=== PATIENT | male | born 1945 | race African-American/Black ===

== ENCOUNTER 2019-06-19 12:19 | Inpatient (IN) | payer MEDICARE, OTHER ==
[~2019-06-19] VITALS: Ht 177.8 cm; Wt 78.5 kg
[2019-06-19] MEDS ORDERED: SODIUM CHLORIDE 0.9% 1,000 ML IV ONE (13:13)
[2019-06-19 13:29] LABS: BG BASE EXCESS -2.1 mmol/L (-2.0-2.0); BG CARBOXYHEMOGLOBIN 3.5 % (0.5-1.5); BG DEOXYHEMOGLOBIN 8.7 % (0.0-5.0); BG FRACTION INSPIRED OXYGEN 21; BG HCO3 ACT 22.9 mmol/L (22.0-26.0); BG METHEMOGLOBIN 0.1 % (0.0-1.5); BG OXYHEMOGLOBIN 87.7 % (94.0-97.0); BG PCO2 40.2 mmHg (35.0-45.0); BG PH 7.374 (7.350-7.450); BG PO2 61.4 mmHg (75.0-100.0); BG SAMPLE SITE RIGHT RADIAL; BG TOTAL HEMOGLOBIN 12.9 g/dL (12.0-18.0); BG VENT MODE ROOM AIR
[2019-06-19 13:40] LABS: BASOPHILS % 0.4 % (0.0-2.0); EOSINOPHILS % 3.8 % (0.0-5.0); HEMATOCRIT. 37.8 % (42.0-52.0); HEMOGLOBIN. 12.2 g/dL (14.0-18.0); LYMPHOCYTES % 27.3 % (20.0-50.0); MEAN CORPUSCULAR HEMOGLOBIN 28.6 pg (28.0-32.0); MEAN CORPUSCULAR VOLUME 88.3 fL (80.0-94.0); MEAN PLATELET VOLUME 8.6 fl (7.4-10.4); MONOCYTES % 6.2 % (2.0-8.0); NEUTROPHILS % 62.3 % (40.0-76.0); PLATELET 212 x1000/uL (130-400); RED BLOOD CELL COUNT 4.28 mill/uL (4.7-6.1); RED CELL DISTRIBUTION WIDTH 14.2 % (11.6-14.6)
[2019-06-19 13:47] LABS: INR 1.1; PROTHROMBIN TIME 11.4 sec (9.6-11.0)
[2019-06-19 13:48] LABS: CHLORIDE 110 mEq/L (98-107)
[2019-06-19 13:51] LABS: ETHANOL BLOOD < 10 mg/dL
[2019-06-19 13:55] LABS: CREATINE KINASE 170 IU/L (39-308)
[2019-06-19 13:58] LABS: CREATINE KINASE MB FRACTION 1.2 ng/mL (0.5-3.6)
[2019-06-19] MEDS ORDERED: ACETAZOLAMIDE SODIUM 500MG/VIAL IV ONE (14:30)
[2019-06-19 16:05] VITALS: BP 111/74
[2019-06-19] MEDS ORDERED: DIPHENHYDRAMINE 50MG/ML VIAL IV PRN (17:00)
[2019-06-19] MEDS ORDERED: GUAIFENESIN 200MG/10ML SUGAR FREE UDC PO PRN (17:00)
[2019-06-19] MEDS ORDERED: DOCUSATE SODIUM 100MG CAPSULE PO PRN (17:00)
[2019-06-19] MEDS ORDERED: ONDANSETRON HCL 4MG/2ML INJ IV PRN (17:00)
[2019-06-19] MEDS ORDERED: ACETAMINOPHEN 325MG TABLET PO PRN (17:00)
[2019-06-19] MEDS ORDERED: IPRATROPIUM/ALBUTEROL 0.5-3(2.5)MG/3ML NEB HHN PRN (17:00)
[2019-06-19] MEDS ORDERED: MAGNESIUM/ALUMINUM HYDROXIDE/SIMETHICONE 30ML UDC PO PRN (17:00)
[2019-06-19] MEDS ORDERED: CLONIDINE 0.1MG TABLET PO PRN (17:00)
[2019-06-19] MEDS ORDERED: HYDROCODONE/ACETAMINOPHEN 5/325MG TABLET PO PRN (17:00)
[2019-06-19 17:04] VITALS: BP 114/74
[2019-06-19 18:00] VITALS: BP 108/72
[2019-06-19] MEDS: SODIUM CHLORIDE 0.9% 1,000 ML IV SCH (18:59)
[2019-06-19] MEDS: ENOXAPARIN 40MG/0.4ML SYR SUBCUT SCH (19:00)
[2019-06-19] MEDS ORDERED: PNEUMOCOCCAL 23-VAL P-SAC VAC 0.5 ML IM ONE (19:45)
[2019-06-19 20:00] VITALS: BP 129/87
[2019-06-19 21:37] LABS: PHOSPHORUS 2.1 mg/dL (2.5-4.9)
[2019-06-19 22:00] VITALS: BP 116/81
[2019-06-20] VITALS (12 sets, daily range): BP systolic 108–147; BP diastolic 68–96
[2019-06-20 06:31] LABS: BASOPHILS % 0.4 % (0.0-2.0); EOSINOPHILS % 3.9 % (0.0-5.0); HEMATOCRIT. 35.6 % (42.0-52.0); HEMOGLOBIN. 11.4 g/dL (14.0-18.0); LYMPHOCYTES % 27.1 % (20.0-50.0); MEAN CORPUSCULAR HEMOGLOBIN 28.5 pg (28.0-32.0); MEAN CORPUSCULAR VOLUME 88.7 fL (80.0-94.0); MONOCYTES % 7.1 % (2.0-8.0); NEUTROPHILS % 61.5 % (40.0-76.0); PLATELET 176 x1000/uL (130-400); RED BLOOD CELL COUNT 4.01 mill/uL (4.7-6.1); RED CELL DISTRIBUTION WIDTH 14.1 % (11.6-14.6)
[2019-06-20] MEDS: SODIUM CHLORIDE 0.9% 1,000 ML IV SCH ×2 (06:42→17:26)
[2019-06-20 09:18] LABS: CHLORIDE 112 mEq/L (98-107)
[2019-06-20 09:26] LABS: LDL CHOLESTEROL 63 mg/dL (5-100)
[2019-06-20 09:34] LABS: HDL CHOLESTEROL 24 mg/dL (40-59)
[2019-06-20] MEDS: ENOXAPARIN 40MG/0.4ML SYR SUBCUT SCH (17:27)
[2019-06-21] VITALS (8 sets, daily range): BP systolic 131–146; BP diastolic 78–93
[2019-06-21] MEDS ORDERED: AMLODIPINE 2.5MG TABLET PO SCH (09:00)
[2019-06-21] MEDS ORDERED: ASPIRIN 81MG EC TABLET PO SCH (09:00)
[2019-06-21] MEDS ORDERED: ASPI-1158 PO (10:37)
== END 2019-06-21 15:40 | disposition home or self-care (01) | DRG 315 ==
LOC: ER 12:19 → 5EST 15:02 → EDBEDREQ 15:06 → ENRESERV 15:20 → CANRESERV 15:20 → ENRESERV 15:29
PROVIDERS: ADMIT Internal Medicine; ATTEND Internal Medicine
DX: I95.9 Hypotension, unspecified (principal); E44.1 Mild protein-calorie malnutrition; D64.9 Anemia, unspecified; E78.5 Hyperlipidemia, unspecified; I10 Essential (primary) hypertension; E87.6 Hypokalemia; E11.9 Type 2 diabetes mellitus without complications; F03.90 Unspecified dementia, unspecified severity, without behavioral disturbance, psychotic disturbance, mood disturbance, and anxiety; F17.200 Nicotine dependence, unspecified, uncomplicated
CPT/HCPCS: 36415; 36600; 71045; 80061; 80320; 82140; 82375; 82550; 82553; 82805; 83605; 83735; 84100; 84145; 84443; 84484; 93005; 93306; 93970; 97162; 97166; 99285; J1120; J1650; J7030; G0480

== ENCOUNTER 2020-06-10 16:13 | Inpatient (IN) | payer MEDICARE, OTHER ==
[~2020-06-10] VITALS: Ht 175.3 cm; Wt 79.4 kg
[~2020-06-10 16:13] MED LIST: ASPI-1158 PO
[2020-06-10] MEDS ORDERED: LIDOCAINE HCL/PF 1% 10 MG/ML 5ML VIAL IJ ONE (17:00)
[2020-06-10] MEDS ORDERED: TETANUS, DIPHTHERIA, PERTUSSIS VAC/PF 0.5ML (>7YR OLD) IM ONE (17:00)
[2020-06-10] MEDS ORDERED: HYDROCODONE/ACETAMINOPHEN 5/325MG TABLET PO ONE (17:00)
[2020-06-10 21:12] LABS: HEMATOCRIT. 42.3 % (42.0-52.0); MEAN CORPUSCULAR HEMOGLOBIN 29.4 pg (28.0-32.0); MEAN CORPUSCULAR VOLUME 88.6 fL (80.0-94.0); MEAN PLATELET VOLUME 8.8 fl (7.4-10.4); PLATELET 220 x1000/uL (130-400); RED BLOOD CELL COUNT 4.77 mill/uL (4.7-6.1); RED CELL DISTRIBUTION WIDTH 13.3 % (11.6-14.6)
[2020-06-10 21:18] LABS: CHLORIDE 102 mEq/L (98-107)
[2020-06-10 21:22] LABS: INR 1.1; PROTHROMBIN TIME 11.3 sec (9.6-11.0)
[2020-06-10 21:28] LABS: PLATELET ESTIMATE NORMAL
[2020-06-10] MEDS ORDERED: ACETAMINOPHEN 325MG TABLET PO PRN (21:30)
[2020-06-10] MEDS ORDERED: ONDANSETRON HCL 4MG/2ML INJ IV PRN (21:30)
[2020-06-10] MEDS ORDERED: GUAIFENESIN 200MG/10ML SUGAR FREE UDC PO PRN (21:30)
[2020-06-10] MEDS ORDERED: MAGNESIUM/ALUMINUM HYDROXIDE/SIMETHICONE 30ML UDC PO PRN (21:30)
[2020-06-10] MEDS ORDERED: DOCUSATE SODIUM 100MG CAPSULE PO PRN (21:30)
[2020-06-10] MEDS ORDERED: CLONIDINE 0.1MG TABLET PO PRN (21:30)
[2020-06-11] VITALS (7 sets, daily range): BP systolic 113–133; BP diastolic 69–88
[2020-06-11] MEDS: HYDROCODONE/ACETAMINOPHEN 5/325MG TABLET PO PRN ×2 (00:17→09:26)
[2020-06-11] MEDS ORDERED: POTASSIUM CHLORIDE 20MEQ TABLET SR PO NR (08:45)
[2020-06-11] MEDS ORDERED: DEXTROSE 50% WATER 50ML SYRINGE IV PRN (08:45)
[2020-06-11] MEDS: AMLODIPINE 10MG TABLET PO SCH (09:26)
[2020-06-11] MEDS: BLOOD SUGAR DIAGNOSTIC STRIP TEST SCH ×3 (11:17→21:14)
[2020-06-11] MEDS: INSULIN LISPRO 100 UNITS/ML SUBCUT SCH ×3 (11:18→21:00)
[2020-06-11] MEDS ORDERED: SERT-112 PO (20:31)
[2020-06-11] MEDS ORDERED: CHOL200077 PO (20:31)
[2020-06-11] MEDS ORDERED: GABA-531 PO (20:31)
[2020-06-11] MEDS ORDERED: DONE10TA43 PO (20:31)
[2020-06-11] MEDS ORDERED: TAMS-11 MT (20:31)
[2020-06-11] MEDS ORDERED: QUET50TA21 PO (20:31)
[2020-06-11] MEDS ORDERED: SIMV-43 PO (20:31)
[2020-06-11] MEDS ORDERED: DONEPEZIL HCL 10MG TABLET PO SCH (21:00)
[2020-06-11] MEDS ORDERED: QUETIAPINE FUMARATE 50MG TABLET PO SCH (21:00)
[2020-06-11] MEDS ORDERED: TAMSULOSIN HCL 0.4MG SR CAPSULE PO SCH (21:00)
[2020-06-11] MEDS ORDERED: MEDICATION NOT ON FORMULARY EA (Simvastatin 20 MG) PO SCH (21:00)
[2020-06-11] MEDS ORDERED: ATORVASTATIN CALCIUM 10MG TABLET PO SCH (21:00)
[2020-06-11] MEDS: GABAPENTIN 300MG CAPSULE PO SCH (21:26)
[2020-06-12] VITALS: BP 106/59
[2020-06-12 04:00] VITALS: BP 115/85
[2020-06-12] MEDS: BLOOD SUGAR DIAGNOSTIC STRIP TEST SCH ×3 (06:12→16:39)
[2020-06-12] MEDS: INSULIN LISPRO 100 UNITS/ML SUBCUT SCH ×3 (06:13→16:39)
[2020-06-12] MEDS: GABAPENTIN 300MG CAPSULE PO SCH ×2 (06:20→14:41)
[2020-06-12 07:49] LABS: BASOPHILS % 0.4 % (0.0-2.0); EOSINOPHILS % 4.8 % (0.0-5.0); HEMATOCRIT. 37.1 % (42.0-52.0); HEMOGLOBIN. 12.1 g/dL (14.0-18.0); LYMPHOCYTES % 27.8 % (20.0-50.0); MEAN CORPUSCULAR VOLUME 88.9 fL (80.0-94.0); MEAN PLATELET VOLUME 9.4 fl (7.4-10.4); MONOCYTES % 10.5 % (2.0-8.0); NEUTROPHILS % 56.5 % (40.0-76.0); PLATELET 178 x1000/uL (130-400); RED BLOOD CELL COUNT 4.17 mill/uL (4.7-6.1); RED CELL DISTRIBUTION WIDTH 13.5 % (11.6-14.6)
[2020-06-12 08:00] VITALS: BP 95/52
[2020-06-12] MEDS ORDERED: CHOLECALCIFEROL (D3) 1000 UNIT TABLET PO SCH (09:00)
[2020-06-12] MEDS: AMLODIPINE 10MG TABLET PO SCH (09:00)
[2020-06-12] MEDS ORDERED: ASPIRIN 81MG EC TABLET PO SCH (09:00)
[2020-06-12] MEDS ORDERED: SERTRALINE HCL 100MG TABLET PO SCH (09:00)
[2020-06-12 10:17] LABS: CHLORIDE 104 mEq/L (98-107)
[2020-06-12] MEDS: HYDROCODONE/ACETAMINOPHEN 5/325MG TABLET PO PRN (10:40)
[2020-06-12 12:00] VITALS: BP 116/72
[2020-06-12] MEDS ORDERED: POTASSIUM CHLORIDE 20MEQ TABLET SR PO SCH (14:30)
[2020-06-12 16:00] VITALS: BP 127/79
[2020-06-12 16:09] VITALS: BP 127/79
== END 2020-06-12 20:30 | disposition home health service (06) | DRG 605 ==
LOC: ER 16:13 → 5WST 22:37 → EDBEDREQTM 22:41 → EDBEDREQ 22:41 → ENRESERV 22:57
PROVIDERS: ADMIT Hospitalist; ATTEND Hospitalist
PROC: 0HQ1XZZ Repair Face Skin, External Approach (ICD-10-PCS; principal; 2020-06-10)
DX: S01.81XA Laceration without foreign body of other part of head, initial encounter (principal); S09.90XA Unspecified injury of head, initial encounter; J45.909 Unspecified asthma, uncomplicated; I10 Essential (primary) hypertension; E78.00 Pure hypercholesterolemia, unspecified; E11.9 Type 2 diabetes mellitus without complications; B19.20 Unspecified viral hepatitis C without hepatic coma; F17.200 Nicotine dependence, unspecified, uncomplicated; M17.10 Unilateral primary osteoarthritis, unspecified knee; W18.39XA Other fall on same level, initial encounter; Y93.89 Activity, other specified; Y92.89 Other specified places as the place of occurrence of the external cause; Y99.8 Other external cause status
CPT/HCPCS: 36415; 70486; 70551; 72100; 73110; 73560; 73700; 80053; 80061; 82962; 83036; 83735; 85025; 90715; 93970; 97161; 99285; J3490